=== PATIENT | female | born 1990 ===

== ENCOUNTER 2021-01-30 05:20 | Inpatient (IN) | payer OTHER ==
[~2021-01-30] VITALS: Ht 162.6 cm; Wt 87.3 kg
[2021-01-30] VITALS (18 sets, daily range): BP systolic 108–135; BP diastolic 61–92; PULSE 65–99; TEMP 97.6–98.3
--- NOTE | 2021-01-30 05:40 | NUR ---
Patient ambulatory to room 221 for scheduled primary for IUGR. Patient changed into gown, wedged to left side in bed. EFMs explained and applied. FHR 130 bpm and reactive, patient reports good movement. Patient denies contractions, leaking of fluid, or vaginal bleeding. VSS. Plan of care reviewed with patient and spouse.
[2021-01-30 06:19] LABS: BASO % 0.3 % (0.0-2.0); EOS # 0.1 (0.0-0.7); GRAN # 6.7 (1.4-6.5); GRAN % 68.5 % (42.2-75.2); HEMOGLOBIN 12.2 g/dl (12.5-16.0); LYMPH # 2.1 (1.2-3.4); LYMPH % 21.6 % (20.0-51.0); MEAN CELL VOLUME 90 fl (80.0-100.0); MEAN CORPUSCULAR HEMOGLOBIN 30 pg (27.0-31.0); MEAN CORPUSCULAR HGB CONC 33 g/dl (33.0-37.0); MEAN PLATELET VOLUME 10.4 fl (7.4-10.4); MONO # 0.8 (0.1-0.6); MONO % 7.9 % (1.7-9.3); PLATELET COUNT 262 K/mm3 (130-400); RED BLOOD COUNT 4.06 M/mm3 (4.10-5.30); REDCELL DISTRIBUTION WIDTH-CV 13.4 % (11.5-14.5)
[2021-01-30 06:22] LABS: HEMATOCRIT 36.7 % (37.0-47.0)
[2021-01-30] MEDS ORDERED: PRENATAL TABLET PO (08:11)
--- NOTE | 2021-01-30 17:15 | NUR ---
Patient assisted to bathroom, brunner catheter removed and patient tolerates well, pericare done, new gown/underwear/pad on. Binder on and plan of care discussed. Patient ambulating room.
[2021-01-31 02:30] VITALS: BP 111/61; PULSE 66; TEMP 98
[2021-01-31 08:00] VITALS: BP 110/67; PULSE 63; TEMP 98.2
[2021-01-31] MEDS ORDERED: IBU800 M1 PO (09:31)
[2021-01-31] MEDS ORDERED: PERCOCET 325 MG1 TA2 PO (09:31)
--- NOTE | 2021-01-31 12:16 | NUR ---
Oil Drilling Engineer offered congrats to patient's family. patient was in the restroom.
--- NOTE | 2021-01-31 13:05 | NUR ---
REPORT GIVEN TO Herve ARIAS RN
[2021-01-31 21:30] VITALS: BP 110/75; PULSE 71; TEMP 97.4
[2021-02-01 09:00] VITALS: BP 127/71; PULSE 66; TEMP 98.4
== END 2021-02-01 09:27 | disposition home or self-care (01) | DRG 787 ==
LOC: OB 05:20 → LDR 12:40 → OB 02-01 09:27
PROVIDERS: ADMIT Student in an Organized Health Care Education/Training Program
PROC: 10D00Z1 Extraction of Products of Conception, Low, Open Approach (ICD-10-PCS; principal; 2021-01-30)
DX: O36.5930 Maternal care for other known or suspected poor fetal growth, third trimester, not applicable or unspecified (principal); O98.52 Other viral diseases complicating childbirth; B01.9 Varicella without complication; O44.03 Complete placenta previa NOS or without hemorrhage, third trimester; Z3A.49 Greater than 42 weeks gestation of pregnancy; Z37.0 Single live birth
CPT/HCPCS: J0690; J1885; J2370; J2405; J2590; J2791; J7120